=== PATIENT | female | born 1990 | race Caucasian/White ===

== ENCOUNTER 2018-10-04 12:14 | Emergency (ER) | payer MEDICAID ==
[~2018-10-04] VITALS: Ht 157.5 cm; Wt 66.9 kg
[2018-10-04 12:16] VITALS: Ht 157.5 cm; Wt 66.9 kg
[2018-10-04] MEDS ORDERED: LIDOCAINE 1%/EPI 30 ML INJ INJ STA (14:00)
[2018-10-04] MEDS ORDERED: CEFTRIAXONE 1 GM INJ IM ONE (14:00)
--- NOTE | 2018-10-04 14:01 | ERD ---
ER Documentation Chief Complaint Chief Complaint PELVIC PAIN - LMP 07/20/18 HPI 27-year-old female who is 10 weeks presents the emergency department complaining of mild pelvic cramping pain for the past couple days. P atient states that she did have vaginal bleeding that started to resolve. Denies fevers, vomiting diarrhea. ROS All systems reviewed and are negative except as per history of present illness. Medications Home Meds Active Scripts Cephalexin* (Keflex*) 500 Mg Capsule, 500 MG PO BID for 12 Days, CAP Prov:AL BLACK PA-C 10/04/18 Allergies Allergies: Coded Allergies: No Known Allergy (Unverified , 10/04/18) PMhx/Soc Medical and Surgical Hx: pt denies Surgical Hx Hx Miscellaneous Medical Probl: Yes Hx Alcohol Use: No Hx Substance Use: No Hx Tobacco Use: No Smoking Status: Never smoker Physical Exam Vitals Vital Signs Date Temp Pulse Resp B/P (MAP) Pulse Ox O2 O2 Flow FiO2 Time Delivery Rate 10/04/18 97.9 79 17 100/76 97 Room Air 15:44 (84) 10/04/18 98.0 71 18 108/52 100 12:16 (70) Physical Exam Const: No acute distress Head: Atraumatic Eyes: Normal Conjunctiva ENT: Normal External Ears, Nose and Mouth. Neck: Full range of motion. No meningismus. Resp: Clear to auscultation bilaterally Cardio: Regular rate and rhythm, no murmurs Abd: Soft, non tender, non distended. Normal bowel sounds Skin: No petechiae or rashes Back: No midline or flank tenderness Ext: No cyanosis, or edema Neur: Awake and alert Psych: Normal Mood and Affect Result Diagram: 10/04/18 1308 Results 24 hrs Laboratory Tests Test 10/04/18 13:08 White Blood Count 9.6 10^3/ul Red Blood Count 4.84 10^6/ul Hemoglobin 13.5 g/dl Hematocrit 40.9 % Mean Corpuscular Volume 84.5 fl Mean Corpuscular Hemoglobin 27.9 pg Mean Corpuscular Hemoglobin Concent 33.0 g/dl Red Cell Distribution Width 15.5 % Platelet Count 177 10^3/UL Mean Platelet Volume 11.7 fl Immature Granulocytes % 0.200 % Neutrophils % 69.7 % Lymphocytes % 22.9 % Monocytes % 6.3 % Eosinophils % 0.5 % Basophils % 0.4 % Nucleated Red Blood Cells % 0.0 /100WBC Immature Granulocytes # 0.020 10^3/ul Neutrophils # 6.7 10^3/ul Lymphocytes # 2.2 10^3/ul Monocytes # 0.6 10^3/ul Eosinophils # 0.1 10^3/ul Basophils # 0.0 10^3/ul Nucleated Red Blood Cells # 0.0 10^3/ul Urine Color YELLOW Urine Clarity CLOUDY Urine pH 7.0 Urine Specific [place] 1.015 Urine Ketones 1+ mg/dL Urine Nitrite NEGATIVE mg/dL Urine Bilirubin NEGATIVE mg/dL Urine Urobilinogen NEGATIVE mg/dL Urine Leukocyte Esterase 3+ Frandy/ul Urine Microscopic RBC 4 /HPF Urine Microscopic WBC 147 /HPF Urine Squamous Epithelial Cells MANY /HPF Urine Amorphous Crystals MODERATE /HPF Urine Mucus FEW /HPF Urine Hemoglobin NEGATIVE mg/dL Urine Glucose NEGATIVE mg/dL Urine Total Protein NEGATIVE mg/dl Beta HCG, Quantitative 846716.0 mIU/ml Current Medications Medications Dose Sig/Tamie Start Time Status Last (Trade) Ordered Route PRN Stop Time Admin Dose Reason Admin Ceftriaxone 1 gm ONCE ONCE 10/04/18 DC 10/04/18 Sodium IM 14:00 14:20 (Rocephin) 10/04/18 14:01 Lidocaine/ 5 ml ONCE STAT 10/04/18 DC Epinephrine INJ 14:00 (Xylocaine 10/04/18 14:01 1%/ Epi (Pf)) Procedures/MDM 27-year-old female presents emerged department presenting that she is 10 weeks complaining of pelvic pain likely due to a urinary tract infection. I doubt pyelonephritis, patient is afebrile well-appearing. There is no evidence of leukocytosis. OB ultrasound was done and showed single live uterine prescription for 10 weeks. I discussed with her to follow-up with her [employer] return precautions given. Rocephin was administered in the ED. Prescription for Keflex provided OB US FINDINGS: There is a single intrauterine gestation with a CRL measuring 3.5 cm and the gestational sac measures 4.8 cm, corresponding to a gestational age of 10 weeks and 5 days. The heart rate is noted at 173 bpm. There is a hypoechoic fluid collection adjacent to the gestational sac, consist ent with subchorionic hemorrhage. The right ovary measures 2.6 x 1.4 x 2.3 cm. The left ovary measures 3.5 x 1.6 x 2.5 cm. No ovarian or adnexal mass lesion is seen. There is no free fluid. RPTAT: AA IMPRESSION: Single live intrauterine with an estimated gestational age of 10 weeks and 5 days, based on ultrasound measurements. Small area of subchorionic hemorrhage. Close follow-up is recommended. Departure Diagnosis: Primary Impression: Pelvic pain Condition: Stable AL BLACK PA-C Oct 04, 2018 14:01
[2018-10-04] MEDS ORDERED: CEPH-443 PO (14:30)
[2018-10-04 15:44] VITALS: BP 100/76; PULSE 79; RESP 17
== END 2018-10-04 15:44 | disposition home or self-care (01) ==
LOC: FTE 12:14
DX: O26.891 Other specified pregnancy related conditions, first trimester (principal); R10.2 Pelvic and perineal pain; Z3A.10 10 weeks gestation of pregnancy
CPT/HCPCS: 76801; 81001; 84702; 85025; 86900; 86901; 96372; J0696; Z7502; Z7610

== ENCOUNTER 2018-12-06 12:36 | Emergency (ER) | payer MEDICAID ==
[~2018-12-06] VITALS: Ht 157.5 cm; Wt 68.0 kg
[~2018-12-06 12:36] MED LIST: CEPH-443 PO
[2018-12-06 13:06] VITALS: Ht 157.5 cm; Wt 68.0 kg
[2018-12-06] MEDS ORDERED: ACET-141 PO (16:31)
--- NOTE | 2018-12-06 16:34 | ERD ---
ER Documentation Chief Complaint Chief Complaint SENT BY OB (SPOKE WITH ALEKS SALAZAR) NEEDS ULTRASOUND. LOWER ABD PAIN ROS All systems reviewed and are negative except as per history of present illness. Medications Home Meds Active Scripts Acetaminophen* (Acetaminophen*) 500 MG Extra Strength Tablet, 500 MG PO Q6H PRN for PAIN AND OR ELEVATED TEMP, #30 TAB Prov:MIA KUHN DO 12/06/18 Cephalexin* (Keflex*) 500 Mg Capsule, 500 MG PO BID for 12 Days, CAP Prov:AL BLACK PA-C 10/04/18 Allergies Allergies: Coded Allergies: No Known Allergy (Unverified , 12/06/18) PMhx/Soc Medical and Surgical Hx: pt denies Medical Hx, pt denies Surgical Hx Hx Miscellaneous Medical Probl: Yes Hx Alcohol Use: No Hx Substance Use: No Hx Tobacco Use: No Physical Exam Vitals Vital Signs Date Temp Pulse Resp B/P (MAP) Pulse Ox O2 O2 Flow FiO2 Time Delivery Rate 12/06/18 98.2 75 19 106/56 100 13:06 (73) Physical Exam Const: No acute distress Head: Atraumatic Eyes: Normal Conjunctiva ENT: Normal External Ears, Nose and Mouth. Neck: Full range of motion. No meningismus. Resp: Clear to auscultation bilaterally Cardio: Regular rate and rhythm, no murmurs Abd: Soft, non tender, non distended. Normal bowel sounds Skin: No petechiae or rashes Back: No midline or flank tenderness Ext: No cyanosis, or edema Neur: Awake and alert Psych: Normal Mood and Affect Result Diagram: 12/06/18 1445 Results 24 hrs Laboratory Tests Test 12/06/18 14:45 White Blood Count 9.0 10^3/ul Red Blood Count 4.40 10^6/ul Hemoglobin 12.7 g/dl Hematocrit 38.3 % Mean Corpuscular Volume 87.0 fl Mean Corpuscular Hemoglobin 28.9 pg Mean Corpuscular Hemoglobin Concent 33.2 g/dl Red Cell Distribution Width 14.6 % Platelet Count 193 10^3/UL Mean Platelet Volume 12.0 fl Immature Granulocytes % 0.200 % Neutrophils % 68.4 % Lymphocytes % 23.6 % Monocytes % 7.2 % Eosinophils % 0.3 % Basophils % 0.3 % Nucleated Red Blood Cells % 0.0 /100WBC Immature Granulocytes # 0.020 10^3/ul Neutrophils # 6.2 10^3/ul Lymphocytes # 2.1 10^3/ul Monocytes # 0.7 10^3/ul Eosinophils # 0.0 10^3/ul Basophils # 0.0 10^3/ul Nucleated Red Blood Cells # 0.0 10^3/ul Urine Color YELLOW Urine Clarity SLIGHTLY CLOUDY Urine pH 6.0 Urine Specific [place] 1.018 Urine Ketones TRACE mg/dL Urine Nitrite NEGATIVE mg/dL Urine Bilirubin NEGATIVE mg/dL Urine Urobilinogen NEGATIVE mg/dL Urine Leukocyte Esterase 1+ Frandy/ul Urine Microscopic RBC 2 /HPF Urine Microscopic WBC 5 /HPF Urine Squamous Epithelial Cells MANY /HPF Urine Bacteria FEW /HPF Urine Mucus FEW /HPF Urine Hemoglobin NEGATIVE mg/dL Urine Glucose NEGATIVE mg/dL Urine Total Protein NEGATIVE mg/dl Departure Diagnosis: Primary Impression: Abdominal pain Abdominal location: unspecified location Qualified Codes: R10.9 - Unspeci fied abdominal pain Additional Impression: Premature dilatation of cervix during Condition: Fair Patient Instructions: Abdominal Pain, and Childbirth: Transvaginal Cerclage Referrals: [facility] YOU HAVE RECEIVED A MEDICAL SCREENING EXAM AND THE RESULTS INDICATE THAT YOU DO NOT HAVE A CONDITION THAT REQUIRES URGENT TREATMENT IN THE EMERGENCY DEPARTMENT. FURTHER EVALUATION AND TREATMENT OF YOUR CONDITION CAN WAIT UNTIL YOU ARE SEEN IN YOUR DOCTORS OFFICE WITHIN THE NEXT 1-2 DAYS. IT IS YOUR RESPONSIBILITY TO MAKE AN APPOINTMENT FOR FOLOW-UP CARE. IF YOU HAVE A PRIMARY DOCTOR --you should call your primary doctor and schedule an appointment IF YOU DO NOT HAVE A PRIMARY DOCTOR YOU CAN CALL OUR PHYSICIAN REFERRAL HOTLINE AT IF YOU CAN NOT AFFORD TO SEE A PHYSICIAN YOU CAN CHOSE FROM THE FOLLOWING [facility] [address] [facility] [address] [facility] [address] [facility] [address] [facility]. [facility] [address] [facility]. [facility]. [address] Additional Instructions: Llame al doctor MAANA y stef juany MARJORIE PARA DENTRO DE 1-2 YOUNG.Dgale a la secretaria que nosotros le instruimos hacer esta marjorie.Avise o llame si pizarro condicin se empeora antes de la marjorie. Regresa aqui si peor o no mejor. Follow up with [facility] in 1-2 days. MIA KUHN DO Dec 06, 2018 16:34
== END 2018-12-06 16:38 | disposition home or self-care (01) ==
LOC: FTE 12:36
DX: O26.892 Other specified pregnancy related conditions, second trimester (principal); R10.30 Lower abdominal pain, unspecified; O34.32 Maternal care for cervical incompetence, second trimester; Z3A.19 19 weeks gestation of pregnancy
CPT/HCPCS: 36415; 76705; 76805; 81001; 85025; 86900; 86901; Z7502

== ENCOUNTER 2018-12-08 04:10 | Emergency (ER) | payer MEDICAID ==
[~2018-12-08] VITALS: Wt 68.8 kg
[~2018-12-08 04:10] MED LIST changes: +ACET-141 PO
--- NOTE | 2018-12-08 08:02 | ERD ---
ER Documentation Chief Complaint Chief Complaint pelvic pain, per US pt is 19 weeks 4 days HPI This is a 28-year-old female presents for evaluation of abdominal cramping, and pelvic pain. Patient was seen here 2 days ago, had a confirmed IUP, presents as pain is still continued. She denies fever, she has not had any vaginal bleed ing, she did notice some white discharge, she has not had any clear discharge or leakage of fluids. No history of recent trauma. ROS All systems reviewed and are negative except as per history of present illness. Medications Home Meds Active Scripts Cephalexin* (Keflex*) 500 Mg Capsule, 500 MG PO QID for 7 Days, CAP Prov:CYRUS SALDANA MD 12/08/18 Acetaminophen* (Acetaminophen*) 500 MG Extra Strength Tablet, 500 MG PO Q6H PRN for PAIN AND OR ELEVATED TEMP, #30 TAB Prov:MIA KUHN DO 12/06/18 Cephalexin* (Keflex*) 500 Mg Capsule, 500 MG PO BID for 12 Days, CAP Prov:AL BLACK PA-C 10/04/18 Allergies Allergies: Coded Allergies: No Known Allergy (Unverified , 12/06/18) PMhx/Soc Medical and Surgical Hx: pt denies Medical Hx, pt denies Surgical Hx History of Surgery: No Anesthesia Reaction: No Hx Neurological Disorder: No Hx Respiratory Disorders: No Hx Cardiac Disorders: No Hx Psychiatric Problems: No Hx Miscellaneous Medical Probl: Yes Hx Alcohol Use: No Hx Substance Use: No Hx Tobacco Use: No Smoking Status: Never smoker Physical Exam Vitals Vital Signs Date Temp Pulse Resp B/P (MAP) Pulse Ox O2 O2 Flow FiO2 Time Delivery Rate 12/08/18 68 18 103/68 100 Room Air 07:11 (80) 12/08/18 98.2 65 20 115/56 97 04:13 (75) Physical Exam Const: No acute distress Head: Atraumatic Eyes: Normal Conjunctiva ENT: Normal External Ears, Nose and Mouth. Neck: Full range of motion. No meningismus. Resp: Clear to auscultation bilaterally Cardio: Regular rate and rhythm, no murmurs Abd: Soft, non tender,, no rebound or guarding, gravid non distended. Normal bowel sounds Skin: No petechiae or rashes Back: No midline or flank tenderness Ext: No cyanosis, or edema Neur: Awake and alert Psych: Normal Mood and Affect Result Diagram: 12/08/18 0630 Results 24 hrs Laboratory Tests Test 12/08/18 05:51 12/08/18 05:53 12/08/18 05:54 12/08/18 06:30 Urine Color YELLOW Urine Clarity SLIGHTLY CLOUDY Urine pH 6.0 Urine Specific 1.016 [place] Urine Ketones NEGATIVE mg/dL Urine Nitrite NEGATIVE mg/dL Urine Bilirubin NEGATIVE mg/dL Urine NEGATIVE mg/dL Urobilinogen Urine Leukocyte 2+ Frandy/ul Esterase Urine 1 /HPF Microscopic RBC Urine 8 /HPF Microscopic WBC Urine Squamous MODERATE /HPF Epithelial Cells Urine Bacteria FEW /HPF Urine Mucus FEW /HPF Urine Hemoglobin NEGATIVE mg/dL Urine Glucose NEGATIVE mg/dL Urine Total NEGATIVE mg/dl Protein Bedside Urine pH 7.0 (LAB) Bedside Urine Negative Protein (LAB) Bedside Urine Negative Glucose (UA) Bedside Urine Negative Ketones (LAB) Bedside Urine Negative Blood Bedside Urine Negative Nitrite (LAB) Bedside Urine 1+ Leukocyte Estera se (L POC Beta HCG, POSITIVE Qualitative White Blood 9.3 10^3/ul Count Red Blood Count 4.06 10^6/ul Hemoglobin 11.6 g/dl Hematocrit 35.3 % Mean Corpuscular 86.9 fl Volume Mean Corpuscular 28.6 pg Hemoglobin Mean Corpuscular 32.9 g/dl Hemoglobin [place] nt Red Cell 14.1 % Distribution Width Platelet Count 170 10^3/UL Mean Platelet 11.9 fl Volume Immature 0.500 % Granulocytes % Neutrophils % 64.3 % Lymphocytes % 26.3 % Monocytes % 7.7 % Eosinophils % 0.8 % Basophils % 0.4 % Nucleated Red 0.0 /100WBC Blood Cells % Immature 0.050 10^3/ul Granulocytes # Neutrophils # 6.0 10^3/ul Lymphocytes # 2.4 10^3/ul Monocytes # 0.7 10^3/ul Eosinophils # 0.1 10^3/ul Basophils # 0.0 10^3/ul Nucleated Red 0.0 10^3/ul Blood Cells # Beta HCG, 22898.0 mIU/ml Quantitative Procedures/MDM 28-year-old female presents with abdominal cramping. On exam, patient is afebrile and nontoxic, no peritoneal signs on abdominal exam. Ultrasound confirmed IUP estimated at 19 weeks and 6 days, ultrasound report noted below. I also noted that on her previous visit she had 8 WBCs, given her , we will treat for pyuria. Given prescription of Keflex, at discharge the patient was in no acute distress. IMPRESSION: 1. Single intrauterine gestation of 19 weeks 5 days +/- 10 days by ultrasound with heart rate of 154. 2. Estimated date of delivery of April 29, 2019. 3. Fetus is currently in transverse position. Departure Diagnosis: Primary Impression: Pelvic pain Additional Impression: Pelvic pain complicating Trimester: second trimester Qualified Codes: O26.892 - Other specified related conditions, second trimester; R10.2 - Pelvic and perineal pain Condition: CYRUS Pena MD Dec 08, 2018 08:02
[2018-12-08] MEDS ORDERED: CEPH-443 PO (08:12)
[2018-12-08 08:23] VITALS: BP 125/78; PULSE 68; RESP 18
== END 2018-12-08 08:24 | disposition home or self-care (01) ==
LOC: FTE 04:10 → E/R 08:24
DX: O26.892 Other specified pregnancy related conditions, second trimester (principal); R10.2 Pelvic and perineal pain; Z3A.19 19 weeks gestation of pregnancy
CPT/HCPCS: 36415; 76801; 81001; 81025; 84702; 85025; Z7502; 81003